=== PATIENT | female | born 1940 | race Two or more races ===

== ENCOUNTER 2019-12-26 09:17 | Outpatient (CLI) | payer OTHER | END 2019-12-26 10:18 | disposition home or self-care (01) | LOC: SONOGRAMA 09:17 | PROVIDERS: ATTEND Urology | DX: C65.1 Malignant neoplasm of right renal pelvis (principal) ==

== ENCOUNTER 2020-01-07 07:13 | Outpatient (CLI) | payer OTHER | END 2020-01-07 07:22 | disposition home or self-care (01) | LOC: MRI 07:13 | PROVIDERS: ATTEND Urology | DX: C65.1 Malignant neoplasm of right renal pelvis (principal); G45.9 Transient cerebral ischemic attack, unspecified | CPT/HCPCS: 70553; 72197; 74183; A9575; 70551 ==

== ENCOUNTER → 2020-01-24 08:00 | Outpatient (CLI) | payer OTHER ==
[~2020-01-24 08:00] MED LIST: CRESTOR20 MG PO; ENALAPRIL MALEA20 MG PO; JANUVIA25 MG PO; NORVASC5 MG PO; PLAVIX75 MG PO; TOPROL XL50 M1 PO; XANAX1 MG PO; ZEGERID 20 MG1 EACH PO
== END | disposition home or self-care (01) ==
LOC: LAB 08:00 → ADM 08:45 → EDSTATUS 08:45 → CIR.AMB 08:45
PROVIDERS: ATTEND Urology
DX: C65.1 Malignant neoplasm of right renal pelvis (principal); Z20.828 Contact with and (suspected) exposure to other viral communicable diseases; I10 Essential (primary) hypertension

== ENCOUNTER 2020-01-29 07:25 | Outpatient (CLI) | payer OTHER | END 2020-01-29 07:27 | disposition home or self-care (01) | LOC: NUCLEAR 07:25 | PROVIDERS: ATTEND Internal Medicine Cardiovascular Disease | DX: I25.118 Atherosclerotic heart disease of native coronary artery with other forms of angina pectoris (principal) | CPT/HCPCS: 78452; 93005; A9500; J0153 ==

== ENCOUNTER 2020-03-20 07:45 | Day surgery (SDC) | payer OTHER | END 2020-03-20 18:00 | disposition home or self-care (01) | LOC: CIR.AMB 07:45 | PROVIDERS: ATTEND Urology | DX: C65.1 Malignant neoplasm of right renal pelvis (principal); Z20.828 Contact with and (suspected) exposure to other viral communicable diseases ==

== ENCOUNTER → 2020-04-27 10:17 | Outpatient (CLI) | payer OTHER ==
[~2020-04-27 10:17] MED LIST changes: +HUMULIN 70100 UNIT/2; +NORVASC2.5 M1 PO; +PEPCID AC10 MG PO
== END | disposition home or self-care (01) ==
LOC: LAB 10:17
DX: E11.22 Type 2 diabetes mellitus with diabetic chronic kidney disease (principal); E11.65 Type 2 diabetes mellitus with hyperglycemia; I13.10 Hypertensive heart and chronic kidney disease without heart failure, with stage 1 through stage 4 chronic kidney disease, or unspecified chronic kidney disease; R19.5 Other fecal abnormalities

== ENCOUNTER 2020-05-04 07:02 | Day surgery (SDC) | payer OTHER ==
[~2020-05-04 07:02] MED LIST changes: -PEPCID AC10 MG PO
[2020-05-20] MEDS ORDERED: PEPCID AC10 MG PO (09:29)
== END 2020-05-04 18:00 | disposition home or self-care (01) ==
LOC: CIR.AMB 07:02
PROVIDERS: ATTEND Urology
DX: N13.1 Hydronephrosis with ureteral stricture, not elsewhere classified (principal); Z20.828 Contact with and (suspected) exposure to other viral communicable diseases

== ENCOUNTER 2020-05-22 06:46 | Day surgery (SDC) | payer OTHER ==
[~2020-05-22 06:46] MED LIST changes: +PEPCID AC10 MG PO
== END 2020-05-22 17:40 | disposition home or self-care (01) ==
LOC: CIR.AMB 06:46
PROVIDERS: ATTEND Urology
DX: C65.1 Malignant neoplasm of right renal pelvis (principal); Z20.828 Contact with and (suspected) exposure to other viral communicable diseases